=== PATIENT | male | born 1965 | race Two or more races ===

== ENCOUNTER 2017-11-08 10:08 | Emergency (ER) | payer BC ==
[~2017-11-08] VITALS: Ht 162.6 cm; Wt 78.9 kg
[2017-11-08 10:29] LABS: Basophils # (auto) 0.1 uL; Eosinophils # (auto) 0.1 uL; Eosinophils % (auto) 0.9 % (0.0-7.0); Hematocrit 47.2 % (41.0-53.0); Hemoglobin 16.2 g/dL (13.5-17.5); Lymphocytes # (auto) 2.2 uL; Lymphocytes % (auto) 23.7 % (10.0-50.0); Mean Corpuscular Hemoglobin 31.7 pg (28.0-32.0); Mean Corpuscular Hgb Conc. 34.3 g/dL (32.0-36.0); Mean Corpuscular Volume 92.5 fL (80.0-100.0); Monocytes # (auto) 0.8 uL; Monocytes % (auto) 8.3 % (0.0-12.0); Neutrophils # (auto) 6.3 uL; Neutrophils % (auto) 66.1 % (37.0-80.0); Platelet Count (auto) 264 10^3/uL (140-450); Red Blood Cells 5.11 10^6/uL (4.5-5.90); Red Cell Distribution Width 12.7 % (11.8-14.3); White Blood Cell 9.5 10^3/uL (4.4-10.8)
[2017-11-08 11:04] LABS: Alanine Aminotransferase 46 U/L (16-61); Albumin 4.1 g/dL (3.4-5.0); Alkaline Phosphatase 86 U/L (45-117); Anion Gap 10 (5-15); Aspartate Aminotransferase 17 U/L (15-37); BUN/Creatinine Ratio 17.2; Bilirubin, Total 0.3 mg/dL (0.2-1.0); Blood Urea Nitrogen 16 mg/dL (7-18); Calcium 9.5 mg/dL (8.5-10.1); Carbon Dioxide 25 mmol/L (21-32); Chloride 105 mmol/L (98-107); GFR African American 109 mL/min; GFR Non-African American 90 mL/min; Glucose 105 mg/dL (74-106); Magnesium 2.1 mg/dL (1.6-2.6); Sodium 140 mmol/L (136-145); Total Protein 7.8 g/dL (6.4-8.2)
[2017-11-08 13:35] VITALS: BP 153/95
== END 2017-11-08 15:35 | disposition home or self-care (01) ==
LOC: ER 10:08
DX: R07.89 Other chest pain (principal)
CPT/HCPCS: 36415; 71046; 76705; 80053; 83735; 84484; 85025; 93005

== ENCOUNTER → 2017-12-30 | Outpatient (CLI) | payer BC ==
[~2017-12-30] VITALS: Ht 160 cm; Wt 78.9 kg
== END | disposition home or self-care (01) ==
LOC: Rad HDHVI 07:54
PROVIDERS: ATTEND Internal Medicine Cardiovascular Disease
DX: R06.02 Shortness of breath (principal); R07.9 Chest pain, unspecified
CPT/HCPCS: 78452; 93017; 93306; 96374; A9500